=== PATIENT | male | born 1970 ===

== ENCOUNTER 2024-09-21 06:21 | Day surgery (SDC) | payer OTHER, SELFPAY ==
[2024-09-21 07:34] LABS: Glucose - Point of Care 112 mg/dl (70-99)
== END 2024-09-21 13:38 | disposition home or self-care (01) ==
LOC: GI 06:21
PROVIDERS: ATTENDING PHYSICIAN Internal Medicine Gastroenterology
DX: Z12.11 Encounter for screening for malignant neoplasm of colon (principal); K57.30 Diverticulosis of large intestine without perforation or abscess without bleeding; D12.5 Benign neoplasm of sigmoid colon; K63.5 Polyp of colon; Z86.0101 Personal history of adenomatous and serrated colon polyps; K63.89 Other specified diseases of intestine
CPT/HCPCS: 45385; 82962; 88305